=== PATIENT | female | born 1980 | race Two or more races ===

== ENCOUNTER 2025-07-19 12:19 | Inpatient (IN) | payer MEDICAID ==
[~2025-07-19] VITALS: Ht 157.5 cm; Wt 74.8 kg
[2025-07-19 12:35] VITALS: O2SAT 100
[2025-07-19 15:32] LABS: BASOPHILS % 0.7 % (0.0-2.0); EOSINOPHILS % 0.9 % (0.0-5.0); HEMATOCRIT. 38.1 % (36.0-48.0); HEMOGLOBIN. 12.9 g/dL (12.0-16.0); LYMPHOCYTES % 38.9 % (20.0-50.0); MEAN PLATELET VOLUME 8.3 fl (7.4-10.4); MONOCYTES % 7.9 % (2.0-8.0); NEUTROPHILS % 51.6 % (40.0-76.0); PLATELET 279 x1000/uL (130-400); RED BLOOD CELL COUNT 4.22 mill/uL (4.2-5.4); RED CELL DISTRIBUTION WIDTH 12.4 % (11.6-14.6)
[2025-07-19 15:43] LABS: INR 1.0
[2025-07-19 15:44] LABS: CREATININE 0.6 mg/dL (0.6-1.0); UREA NITROGEN BLOOD 8 mg/dL (9-23)
[2025-07-19 15:46] LABS: ASPARTATE AMINOTRANSFERASE 21 IU/L (<34); BILIRUBIN DIRECT 0.1 mg/dL (<=3.0); BILIRUBIN TOTAL 0.7 mg/dL (0.1-1.0); PROTEIN TOTAL 7.5 g/dL (6.0-8.3)
[2025-07-19 16:55] LABS: HCG SCREEN NEGATIVE
[2025-07-19 18:50] VITALS: BP 135/72; PULSE 80; RESP 16; TEMP 36; O2SAT 100
[2025-07-19] MEDS ORDERED: CLONIDINE 0.1MG TABLET PO PRN (19:00)
[2025-07-19] MEDS ORDERED: HYDRALAZINE 20MG/ML VIAL IV PRN (19:00)
[2025-07-19] MEDS ORDERED: DEXTROSE 50% WATER 50ML SYRINGE IV PRN (19:00)
[2025-07-19] MEDS ORDERED: DOCUSATE SODIUM 100MG CAPSULE PO PRN (19:00)
[2025-07-19] MEDS ORDERED: IPRATROPIUM/ALBUTEROL 0.5-3(2.5)MG/3ML NEB HHN PRN (19:00)
[2025-07-19] MEDS ORDERED: NALOXONE HCL 0.4MG/ML VIAL IV PRN (19:15)
[2025-07-19] MEDS ORDERED: HYDRALAZINE 10 MG in SODIUM CHLORIDE 0.9% 49.5 ML IV PRN (19:30)
[2025-07-19] MEDS: DEXT 5%/0.45% NACL 1000ML 1,000 ML IV SCH (19:57)
[2025-07-19] MEDS: BLOOD SUGAR DIAGNOSTIC STRIP TEST SCH (20:00)
[2025-07-19] MEDS: INSULIN LISPRO 100 UNITS/ML SUBCUT SCH (20:09)
[2025-07-19 21:17] LABS: *AMPHETAMINES SCREEN URINE NEGATIVE (NEGATIVE); *BARBITURATES SCREEN URINE NEGATIVE (NEGATIVE); *BENZODIAZEPINES SCREEN URINE NEGATIVE (NEGATIVE); *COCAINE SCREEN URINE NEGATIVE (NEGATIVE); CANNABINOID URINE SCREEN NEGATIVE (NEGATIVE); ECSTASY MDMA SCREEN URINE NEGATIVE (NEGATIVE); METHADONE URINE SCREEN NEGATIVE (NEGATIVE); OPIATES URINE SCREEN NEGATIVE (NEGATIVE); PHENCYCLIDINE URINE SCREEN NEGATIVE (NEGATIVE)
[2025-07-19] MEDS ORDERED: DEXT 5%/LACTATED RINGERS 1,000 ML IV SCH (23:30)
[2025-07-20] VITALS (50 sets, daily range): BP systolic 94–124; BP diastolic 45–100; PULSE 75–127; RESP 10–27; TEMP 36.5–36.9; O2SAT 95–100
[2025-07-20] MEDS ORDERED: GENTAMICIN SULF 40MG/ML 2ML VIAL ONE (06:01)
[2025-07-20] MEDS ORDERED: FAMOTIDINE 20MG/2ML VIAL IV ONE (06:01)
[2025-07-20] MEDS ORDERED: LIDOCAINE HCL/EPINEPHRINE 1%-EPI 1:100,000 20ML VIAL ONE (06:01)
[2025-07-20] MEDS ORDERED: THROMBIN (BOVINE) 5000 UNITS/VIAL TOP ONE (06:01)
[2025-07-20 07:02] LABS: BASOPHILS % 0.8 % (0.0-2.0); EOSINOPHILS % 1.4 % (0.0-5.0); HEMATOCRIT. 36.7 % (36.0-48.0); HEMOGLOBIN. 12.4 g/dL (12.0-16.0); LYMPHOCYTES % 41.6 % (20.0-50.0); MEAN PLATELET VOLUME 8.6 fl (7.4-10.4); MONOCYTES % 8.3 % (2.0-8.0); NEUTROPHILS % 47.9 % (40.0-76.0); PLATELET 278 x1000/uL (130-400); RED BLOOD CELL COUNT 4.03 mill/uL (4.2-5.4); RED CELL DISTRIBUTION WIDTH 12.1 % (11.6-14.6)
[2025-07-20] MEDS ORDERED: ONDANSETRON HCL 4MG/2ML INJ ONE (07:02)
[2025-07-20] MEDS ORDERED: DEXAMETHASONE 4MG/ML 1ML VIAL ONE (07:02)
[2025-07-20] MEDS ORDERED: ROCURONIUM BROMIDE 10MG/ML VIAL 5ML IV ONE (07:02)
[2025-07-20] MEDS ORDERED: FENTANYL CITRATE/PF 50MCG/ML 2ML VIAL ONE (07:02)
[2025-07-20] MEDS ORDERED: SUCCINYLCHOLINE CHLORIDE 200MG/10ML IV ONE (07:02)
[2025-07-20] MEDS ORDERED: PROPOFOL 200MG/20ML VIAL IV ONE (07:02)
[2025-07-20] MEDS ORDERED: CEFAZOLIN SODIUM 1000MG/VIAL ONE (07:02)
[2025-07-20] MEDS ORDERED: MIDAZOLAM HCL 2 MG/2 ML VIAL ONE (07:03)
[2025-07-20 07:12] LABS: INR 1.1
[2025-07-20 07:43] LABS: PROTEIN TOTAL 6.9 g/dL (6.0-8.3)
[2025-07-20 07:44] LABS: ASPARTATE AMINOTRANSFERASE 27 IU/L (<34); CREATININE 0.6 mg/dL (0.6-1.0); TRIGLYCERIDE 210 mg/dL (0-150); UREA NITROGEN BLOOD 10 mg/dL (9-23)
[2025-07-20 07:45] LABS: LDL CHOLESTEROL 141 mg/dL (5-100)
[2025-07-20 07:46] LABS: BILIRUBIN DIRECT 0.2 mg/dL (<=3.0); BILIRUBIN TOTAL 1.0 mg/dL (0.1-1.0); PHOSPHORUS 4.6 mg/dL (2.5-4.9)
[2025-07-20] MEDS ORDERED: HYDROMORPHONE HCL/PF 2MG/ML INJ ONE ×2 (07:58→09:30)
[2025-07-20] MEDS: PANTOPRAZOLE SODIUM 40 MG/VIAL IV SCH (09:00)
[2025-07-20] MEDS ORDERED: HYDRALAZINE 20MG/ML VIAL ONE (09:30)
[2025-07-20] MEDS ORDERED: NICARDIPINE 100 MG in SODIUM CHLORIDE 0.9% 60 ML IV PRN (09:45)
[2025-07-20] MEDS: DEXT 5%/LACTATED RINGERS 1,000 ML IV SCH (11:30)
[2025-07-20 12:27] LABS: HEPATITIS C AB NON REACTIVE (Neg) (Negative)
[2025-07-20] MEDS: CEFAZOLIN 1000MG PREMIX 50ML IV SCH (13:57)
[2025-07-20] MEDS ORDERED: CEFAZOLIN SODIUM 1000MG/VIAL IV SCH (14:00)
[2025-07-20] MEDS: MORPHINE SULFATE 4 MG/ML INJ (FOR IV/IM USE) IV PRN (16:43)
[2025-07-20] MEDS: ONDANSETRON HCL 4MG/2ML INJ IV PRN (17:54)
[2025-07-20] MEDS: SODIUM CHLORIDE 0.9% 500 ML IV ONE (20:52)
[2025-07-20] MEDS: METOPROLOL TARTRATE 25MG TABLET PO SCH (21:00)
[2025-07-20] MEDS: ATORVASTATIN CALCIUM 40MG TABLET PO SCH (21:37)
[2025-07-20] MEDS: MIDODRINE HCL 5MG TABLET PO SCH (21:41)
[2025-07-20] MEDS ORDERED: NOREPINEPHRINE 8 MG in DEXT 5% WATER 242 ML IV PRN (21:45)
[2025-07-20] MEDS: HYDROCODONE/ACETAMINOPHEN 5/325MG TABLET PO PRN (22:38)
[2025-07-20] MEDS: NOREPINEPHRINE 8MG/250ML PMX 250ML IV PRN (23:42)
[2025-07-21] VITALS (86 sets, daily range): BP systolic 79–128; BP diastolic 39–71; PULSE 92–149; RESP 12–24; TEMP 36.7–38.1; O2SAT 92–100
[2025-07-21 06:04] LABS: BASOPHILS % 0.1 % (0.0-2.0); EOSINOPHILS % 0.1 % (0.0-5.0); HEMATOCRIT. 25.4 % (36.0-48.0); HEMOGLOBIN. 8.6 g/dL (12.0-16.0); LYMPHOCYTES % 22.8 % (20.0-50.0); MEAN PLATELET VOLUME 8.3 fl (7.4-10.4); MONOCYTES % 9.8 % (2.0-8.0); NEUTROPHILS % 67.2 % (40.0-76.0); PLATELET 234 x1000/uL (130-400); RED BLOOD CELL COUNT 2.82 mill/uL (4.2-5.4); RED CELL DISTRIBUTION WIDTH 12.3 % (11.6-14.6)
[2025-07-21 06:15] LABS: CREATININE 0.5 mg/dL (0.6-1.0); UREA NITROGEN BLOOD 5 mg/dL (9-23)
[2025-07-21] MEDS ORDERED: HYDROCODONE/ACETAMINOPHEN 10/325MG TABLET PO PRN (09:30)
[2025-07-21] MEDS: POTASSIUM CHLORIDE 20MEQ TABLET SR PO NR (12:03)
[2025-07-21] MEDS: SODIUM CHLORIDE 0.9% 1,000 ML IV ONE (21:10)
[2025-07-21] MEDS: ACETAMINOPHEN 325MG TABLET PO PRN (23:44)
[2025-07-22] VITALS (91 sets, daily range): BP systolic 102–139; BP diastolic 49–101; PULSE 85–139; RESP 12–31; TEMP 36.78072–38.1; O2SAT 93–100
[2025-07-22] MEDS: METOPROLOL TARTRATE 5MG/5ML VIAL IV PRN (00:21)
[2025-07-22 06:00] LABS: BASOPHILS % 0.3 % (0.0-2.0); EOSINOPHILS % 0.1 % (0.0-5.0); HEMATOCRIT. 24.5 % (36.0-48.0); HEMOGLOBIN. 8.3 g/dL (12.0-16.0); LYMPHOCYTES % 31.7 % (20.0-50.0); MEAN PLATELET VOLUME 8.2 fl (7.4-10.4); MONOCYTES % 10.5 % (2.0-8.0); NEUTROPHILS % 57.4 % (40.0-76.0); PLATELET 184 x1000/uL (130-400); RED BLOOD CELL COUNT 2.68 mill/uL (4.2-5.4); RED CELL DISTRIBUTION WIDTH 12.3 % (11.6-14.6)
[2025-07-22 06:28] LABS: CREATININE 0.4 mg/dL (0.6-1.0); UREA NITROGEN BLOOD < 5 mg/dL (9-23)
[2025-07-22] MEDS: ACETAMINOPHEN 325MG TABLET PO PRN (08:20)
[2025-07-22 20:39] LABS: CLARITY URINE CLEAR (CLEAR); COLOR URINE YELLOW (YELLOW); GLUCOSE URINE NEGATIVE (NEGATIVE); KETONES URINE NEGATIVE (NEGATIVE); LEUKOCYTE ESTERASE URINE 1+ (NEGATIVE); NITRITE URINE NEGATIVE (NEGATIVE); OCCULT BLOOD URINE NEGATIVE (NEGATIVE); PH URINE 8.5 (4.5-8.0); PROTEIN URINE NEGATIVE (NEGATIVE); SPECIFIC GRAVITY URINE 1.009 (1.005-1.030); UROBILINOGEN URINE 1.0 E.U./dL (0.2-1.0)
[2025-07-22 20:59] LABS: SQUAMOUS EPITHELIAL CELL URINE 1+ /lpf (RARE/1+)
[2025-07-22 21:04] LABS: BACTERIA URINE 1+; RBC URINE 0-2 /hpf (0-2); YEAST URINE 1+
[2025-07-23] VITALS (36 sets, daily range): BP systolic 101–145; BP diastolic 56–92; PULSE 70–116; RESP 14–22; TEMP 36.1–37.2; O2SAT 94–99
[2025-07-23 06:58] LABS: BASOPHILS % 0.6 % (0.0-2.0); EOSINOPHILS % 0.4 % (0.0-5.0); HEMATOCRIT. 28.3 % (36.0-48.0); HEMOGLOBIN. 9.7 g/dL (12.0-16.0); LYMPHOCYTES % 33.0 % (20.0-50.0); MEAN PLATELET VOLUME 8.3 fl (7.4-10.4); MONOCYTES % 8.4 % (2.0-8.0); NEUTROPHILS % 57.6 % (40.0-76.0); PLATELET 187 x1000/uL (130-400); RED BLOOD CELL COUNT 3.10 mill/uL (4.2-5.4); RED CELL DISTRIBUTION WIDTH 12.2 % (11.6-14.6)
[2025-07-23 07:18] LABS: CREATININE 0.4 mg/dL (0.6-1.0); UREA NITROGEN BLOOD < 5 mg/dL (9-23)
[2025-07-23] MEDS ORDERED: HYDRALAZINE 20MG/ML VIAL IV PRN (10:15)
[2025-07-23] MEDS ORDERED: HYDRALAZINE 10 MG in SODIUM CHLORIDE 0.9% 49.5 ML IV PRN (10:15)
[2025-07-23] MEDS: POTASSIUM CHLORIDE 20MEQ TABLET SR PO NR (10:15)
[2025-07-23] MEDS: POLYETHYLENE GLYCOL 3350 (17GM) 1 DOSE PACK PO SCH (22:09)
[2025-07-24] VITALS (13 sets, daily range): BP systolic 107–134; BP diastolic 60–86; PULSE 68–88; RESP 16–18; TEMP 36.2–37; O2SAT 97–99
[2025-07-24] MEDS ORDERED: HYDR-4001 PO (13:08)
== END 2025-07-24 17:48 | disposition home or self-care (01) | DRG 304 ==
LOC: ER 12:19 → 7EST 17:31 → EDBEDREQ 17:46 → EDBEDREQTM 17:46 → ENRESERV 18:20 → MICUNO 07-20 10:56 → 6EST 07-23 10:09
PROVIDERS: ADMIT Internal Medicine; ATTEND Internal Medicine
PROC: 0SG3071 Fusion of Lumbosacral Joint with Autologous Tissue Substitute, Posterior Approach, Posterior Column, Open Approach (ICD-10-PCS; principal; 2025-07-20)
PROC: 0ST40ZZ Resection of Lumbosacral Disc, Open Approach (ICD-10-PCS; 2025-07-20)
PROC: 01NB0ZZ Release Lumbar Nerve, Open Approach (ICD-10-PCS; 2025-07-20)
PROC: 01NR0ZZ Release Sacral Nerve, Open Approach (ICD-10-PCS; 2025-07-20)
PROC: 4A11X4G Monitoring of Peripheral Nervous Electrical Activity, Intraoperative, External Approach (ICD-10-PCS; 2025-07-20)
PROC: 30233N1 Transfusion of Nonautologous Red Blood Cells into Peripheral Vein, Percutaneous Approach (ICD-10-PCS; 2025-07-22)
DX: M47.817 Spondylosis without myelopathy or radiculopathy, lumbosacral region (principal); G82.20 Paraplegia, unspecified; D64.9 Anemia, unspecified; E11.9 Type 2 diabetes mellitus without complications; E78.00 Pure hypercholesterolemia, unspecified; E78.5 Hyperlipidemia, unspecified; I10 Essential (primary) hypertension; G89.4 Chronic pain syndrome; M51.27 Other intervertebral disc displacement, lumbosacral region; M48.07 Spinal stenosis, lumbosacral region; M51.26 Other intervertebral disc displacement, lumbar region; M43.16 Spondylolisthesis, lumbar region; M79.604 Pain in right leg
CPT/HCPCS: 36415; 71045; 72100; 72148; 76000; 80048; 80061; 80076; 80305; 81003; 82962; 83036; 83735; 84100; 84703; 85014; 85018; 85025; 86705; 86850; 86900; 86920; 87340; 88304; 88311; 93005; 93970; 94640; 95925; 95926; 95928; 95929; 97110; 97116; 97162; 97166; 97530; 97535; 99285; J0330; J0360; J0690; J1100; J1171; J1308; J1580; J1815; J2004; J2250; J2270; J2405; J2470; J2704; J3010; J3490; J7121; P9016; C1713